=== PATIENT | male | born 1960 | race Hispanic/Latino ===

== ENCOUNTER → 2019-12-25 | Outpatient (CLI) | payer OTHER ==
[~2019-12-25] MED LIST: FENTANYL CITRATE/PF 100MCG/2 ML INJ ONE; MIDAZOLAM HCL 2 MG/2 ML VIAL ONE
[2019-12-25 08:42] LABS: HEMOGLOBIN 13.7 g/dL (14.0-18.0)
[2019-12-25 09:09] LABS: INR 0.95; PROTHROMBIN TIME 13.2 seconds (11.9-14.5)
[2019-12-25 09:10] LABS: PARTIAL THROMBOPLASTIN TIME 35.1 seconds (23.8-35.5)
--- NOTE | 2019-12-25 14:51 | Diagnostic Imaging Report ---
PROCEDURE: Ultrasound-guided nonfocal liver biopsy Procedural Personnel Attending physician(s): Juve Courtney MD Fellow physician(s): None Resident physician(s): None Advanced practice provider(s): None Pre-procedure diagnosis: Chronic hepatitis C Post-procedure diagnosis: Same Indication: Organ dysfunction Previous biopsy of same target (QCDR): No Additional clinical history: None Complications: No immediate complications. IMPRESSION: Ultrasound-guided biopsy of the liver. Plan: Specimen(s) sent for evaluation. PROCEDURE SUMMARY: - Percutaneous US-guided nonfocal right liver biopsy - Additional procedure(s): None PROCEDURE DETAILS: Pre-procedure Reference imaging for biopsy target: None Consent: Informed consent for the procedure including risks, benefits and alternatives was obtained and time-out was performed prior to the procedure. Preparation: The site was prepared and draped using maximal sterile barrier technique including cutaneous antisepsis. Anesthesia/sedation Level of anesthesia/sedation: Moderate sedation (conscious sedation) 1mg Versed, 50mcg Fentanyl Anesthesia/sedation administered by: Independent trained observer under attending supervision with continuous monitoring of the patient?s level of consciousness and physiologic status Total intra-service sedation time (minutes): 30 Imaging prior to biopsy The patient was positioned supine. Initial ultrasound was performed. Biopsy target: - Maximal diameter (cm): N/A - Location: Right liver Other findings: None Biopsy Local anesthesia was administered. Under US guidance, the biopsy needle was advanced to the target and biopsy was performed. Coaxial needle: 17 gauge Core needle biopsy device: [employer] Core needle size: 18 gauge Number of core specimens: 3 Needle removal The biopsy needle was removed and a sterile dressing was applied. Tract embolization: None Imaging following biopsy Immediate post-biopsy ultrasound was performed. Post-biopsy imaging findings: No hematoma Additional Details Additional description of procedure: None Equipment details: None Specimens removed: Biopsy samples as detailed above Estimated blood loss (mL): Less than 10 Standardized report: [id number] Attestation Signer name: Juve Courtney MD I attest that I was present for the entire procedure. I reviewed the stored images and agree with the report as written. Signed by: Juve Courtney MD on 12/25/2019 2:48 PM
== END ==
LOC: US 08:13
PROVIDERS: ATTEND Internal Medicine
DX: K83.1 Obstruction of bile duct (principal); K73.9 Chronic hepatitis, unspecified; K74.0 Hepatic fibrosis
CPT/HCPCS: 36415; 47000; 76942; 85014; 85049; 85610; 85730; 88307; 88313; J2250; J3010; 99152